=== PATIENT | male | born 1975 | race African-American/Black ===

== ENCOUNTER → 2020-04-19 14:39 | Outpatient (CLI) | payer OTHER, SELFPAY ==
[2020-04-19 15:12] LABS: Basophils % 0.7 % (0.1-2.0); Eosinophils # 0.2 K/mm3 (0.0-0.4); Eosinophils % 4.1 % (0.1-12.0); Hematocrit 43.8 % (42.0-52.0); Hemoglobin 15.3 g/dL (14.1-18.0); Lymphocytes # 2.6 K/mm3 (0.7-4.5); Lymphocytes % 50.7 % (10-50); Mean Corpuscular Volume 91.4 fl (80-94); Monocytes # 0.2 K/mm3 (0.1-1.0); Neutrophils # 2.1 K/mm3 (1.8-7.8); Neutrophils % 40.6 % (37.0-80.0); Platelet Count 194 K/mm3 (142-424); Red Blood Count 4.79 M/mm3 (4.60-6.20); Red Cell Distribution Width 13.5 % (11.5-17.5); White Blood Count 5.2 K/mm3 (4.8-10.8)
[2020-04-19 15:19] LABS: MANUAL DIFFERENTIAL MANUAL DIFFERENTIAL (MANUAL DIFF)
[2020-04-19 15:41] LABS: Alanine Aminotransferase 28 U/L (12-78); Albumin Level 4.2 g/dl (3.5-5.0); Alkaline Phosphatase 72 U/L (38-126); Aspartate Amino Transferase 27 U/L (17-59); Bilirubin,Indirect 0.4 mg/dL (0.0-0.9); Bilirubin,Total 0.4 mg/dl (0.2-1.3); Bilirubin,Unconjugated 0.3 mg/dL (0.0-1.1); Total Protein,Serum 7.3 g/dl (6.3-8.2)
[2020-04-19 15:58] LABS: Eosinophils % 3 % (0-3); Lymphocytes % 52 % (10-50); Monocytes % 2 % (2-9); Neutrophils % 43 % (42-76); Platelet Estimate Normal; RBC Morphology Normal; Total Cells Counted 100
[2020-04-19 16:10] LABS: Prostate Specific Ag Screen 0.2 ng/ml (0.0-4.0)
[2020-04-25 10:13] LABS: Testosterone, Total, LC/MS 102.6 ng/dL (264.0-916.0); Testosterone,Free 3.9 pg/mL (6.8-21.5)
== END ==
PROVIDERS: Visit Provider Urology
DX: E29.1 Testicular hypofunction (principal); Z12.5 Encounter for screening for malignant neoplasm of prostate
CPT/HCPCS: 36415; 80076; 84402; 84403; 85007; 85025; G0103

== ENCOUNTER → 2020-11-19 15:33 | Outpatient (CLI) | payer OTHER, SELFPAY ==
[2020-11-19 16:10] LABS: Basophils # 0.1 K/mm3 (0-0.2); Basophils % 1.2 % (0.1-2.0); Eosinophils # 0.3 K/mm3 (0.0-0.4); Eosinophils % 4.3 % (0.1-12.0); Hematocrit 52.8 % (42.0-52.0); Hemoglobin 16.9 g/dL (14.1-18.0); Lymphocytes # 2.3 K/mm3 (0.7-4.5); Lymphocytes % 39.6 % (10-50); Mean Corpuscular Hemoglobin 30.6 pg (27.0-31.2); Mean Corpuscular Volume 95.7 fl (80-94); Mean Platelet Volume 7.7 fl (7.4-10.4); Monocytes # 0.2 K/mm3 (0.1-1.0); Monocytes % 3.6 % (1.7-9.3); Neutrophils # 2.9 K/mm3 (1.8-7.8); Neutrophils % 51.2 % (37.0-80.0); Platelet Count 215 K/mm3 (142-424); Red Blood Count 5.51 M/mm3 (4.60-6.20); Red Cell Distribution Width 13.7 % (11.5-17.5); White Blood Count 5.7 K/mm3 (4.8-10.8)
[2020-11-19 16:50] LABS: Alanine Aminotransferase 35 U/L (12-78); Albumin Level 4.1 g/dl (3.5-5.0); Alkaline Phosphatase 72 U/L (38-126); Aspartate Amino Transferase 29 U/L (17-59); Bilirubin,Direct 0.3 mg/dl (0.0-0.4); Bilirubin,Indirect 0.3 mg/dL (0.0-0.9); Bilirubin,Total 0.6 mg/dl (0.2-1.3); Bilirubin,Unconjugated 0.3 mg/dL (0.0-1.1); Total Protein,Serum 7.4 g/dl (6.3-8.2)
[2020-11-21 11:05] LABS: Estradiol 23.8 pg/mL (7.6-42.6)
[2020-11-24 18:13] LABS: Testosterone, Total, LC/MS 95.6 ng/dL (264.0-916.0); Testosterone,Free 2.6 pg/mL (6.8-21.5)
== END ==
PROVIDERS: Visit Provider Urology
DX: E29.1 Testicular hypofunction (principal)
CPT/HCPCS: 36415; 80076; 82670; 84402; 84403; 85025

== ENCOUNTER → 2020-11-22 14:56 | Outpatient (CLI) | payer OTHER, SELFPAY ==
[2020-11-22 17:02] VITALS: BMI 40.1
== END ==
PROVIDERS: PCP Internal Medicine; Visit Provider Urology
DX: Z71.3 Dietary counseling and surveillance (principal); E11.9 Type 2 diabetes mellitus without complications
CPT/HCPCS: 97802

== ENCOUNTER 2021-07-23 05:40 | Emergency (ER) | payer BC, SELFPAY ==
[2021-07-23] VITALS (8 sets, daily range): BP systolic 140–169; BP diastolic 79–106; PULSE 78–94; RESP 16–24; TEMP 36.6–37.9; O2SAT 92–98; BMI 35.4
--- NOTE | 2021-07-23 05:52 | XR_ITS ---
PROCEDURE INFORMATION: Exam: XR Chest Exam date and time: 07/23/2021 5:52 AM Age: 46 years old Clinical indication: Cough and shortness of breath; Patient HX: SOA, cough, covid, smoker; Additional info: Possible covid TECHNIQUE: Imaging protocol: XR of the chest. Views: 2 views. COMPARISON: CR CXR2V XR chest 2V 10/28/2018 11:44 AM FINDINGS: Lungs: Some atelectasis or early infiltrate is seen in the right lung base. Pleural spaces: Unremarkable. No pleural effusion. No pneumothorax. Heart/Mediastinum: Unremarkable. No cardiomegaly. Bones/joints: Unremarkable. IMPRESSION: Right lung base airspace disease.
[2021-07-23 06:02] LABS: Influenza A, PCR Not Detected (NotDetected); Influenza B, PCR Not Detected (NotDetected)
[2021-07-23 06:07] LABS: Basophils % 0.8 % (0.1-2.0); Eosinophils # 0.1 K/mm3 (0.0-0.4); Eosinophils % 1.6 % (0.1-12.0); Hematocrit 52.9 % (42.0-52.0); Hemoglobin 17.6 g/dL (14.1-18.0); Lymphocytes # 0.6 K/mm3 (0.7-4.5); Lymphocytes % 13.3 % (10-50); Mean Corpuscular HGB Conc 33.3 g/dL (31.8-35.4); Mean Corpuscular Hemoglobin 31.6 pg (27.0-31.2); Mean Corpuscular Volume 94.9 fl (80-94); Mean Platelet Volume 7.4 fl (7.4-10.4); Monocytes # 0.2 K/mm3 (0.1-1.0); Monocytes % 4.1 % (1.7-9.3); Neutrophils # 3.4 K/mm3 (1.8-7.8); Neutrophils % 80.2 % (37.0-80.0); Platelet Count 151 K/mm3 (142-424); Red Blood Count 5.57 M/mm3 (4.60-6.20); Red Cell Distribution Width 12.9 % (11.5-17.5); White Blood Count 4.3 K/mm3 (4.8-10.8)
[2021-07-23 06:12] LABS: Alanine Aminotransferase 49 U/L (12-78); Albumin Level 3.9 g/dl (3.5-5.0); Albumin/Globulin Ratio 1.1 (1.1-1.8); Alkaline Phosphatase 61 U/L (38-126); Anion Gap 14.2 mEq/L (5-15); Aspartate Amino Transferase 37 U/L (17-59); Bilirubin,Total 0.4 mg/dl (0.2-1.3); Blood Urea Nitrogen 15 mg/dl (9-20); Carbon Dioxide 28 mmol/L (22.0-30.0); Chloride 100 mmol/L (98-107); Creatinine Clearance Estimated 97 mL/min (50-200); Estimated Glomerular Filt Rate 51 ml/min (>60); GFR (African American) 62 ML/MIN (>60); Globulin 3.6 g/dL (1.3-3.2); Glucose 173 mg/dl (74-100); Potassium 4.2 mmoL/L (3.5-5.1); Sodium 138 mmol/L (136-145); Total Protein,Serum 7.5 g/dl (6.3-8.2)
[2021-07-23 06:17] LABS: C-Reactive Protein 46.7 mg/L (0-4)
[2021-07-23 06:30] LABS: Procalcitonin 0.166 ng/mL (0.0-2.0)
[2021-07-23 06:43] LABS: Erythrocyte Sedimentation Rate 2 mm/hr (0-15)
--- NOTE | 2021-07-23 06:46 | [facility].EDSOB ---
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 Diabetes mellitus complication status: with other specified complication Qualified Code(s): E11.69 - Type 2 diabetes mellitus with other specified complication Disposition: Home, Self-Care Condition on Discharge: Good Instructions: DI for COVID-19 (Suspected or Confirmed ) Additional Instructions: fluids and call pcp for follow up Referrals: Keyur Moffett MD [Primary Care Provider] - - Critical Care Critical Care Time: No Attestation: On 07/23/21, the high probability of a clinically significant, sudden or life threatening deterioration of the following system(s) required my full and direct attention, intervention and personal management. The time I documented below is in addition to time spent performing reported procedures but includes the following listed in this critical care notation. Medical Decision Making - Medical Records Medical records reviewed: Yes: I reviewed the patient's medical records. - Ady Inquiry Pt receiving controlled substance: No Vital Signs: 07/23/21 05:42 Temperature 100.2 F H Temperature Source Oral Pulse Rate [Right] 94 H Respiratory Rate 24 Blood Pressure [Right Arm] 149/80 H Blood Pressure Mean [Right Arm] 103 Blood Pressure Source [Right Arm] Automatic Cuff 02 Sat by Pulse Oximetry 96 Oxygen Delivery Method Room Air - Lab Data Lab results reviewed: Yes: I reviewed the patient's lab results. Lab Results 07/23/21 05:55: WBC 4.3 L, RBC 5.57, Hgb 17.6, Hct 52.9 H, MCV 94.9 H, MCH 31.6 H, MCHC 33.3, RDW 12.9, Plt Count 151, MPV 7.4, Neut % (Auto) 80.2 H, Lymph % (Auto) 13.3, [place] % (Auto) 4.1, Eos % (Auto) 1.6, Baso % (Auto) 0.8, Neut # (Auto) 3.4, Lymph # (Auto) 0.6 L, [place] # (Auto) 0.2, Eos # (Auto) 0.1, Baso # (Auto) 0.0, ESR 2 07/23/21 05:55: Sodium 138, Potassium 4.2, Chloride 100, Carbon Dioxide 28, Anion Gap 14.2, BUN 15, Creatinine 1.50 H, Estimated Creat Clear 97, Estimated GFR 51 L, Est GFR ( Amer) 62, Glucose 173 H, Calcium 8.0 L, Total Bilirubin 0.4, AST 37, ALT 49, Alkaline Phosphatase 61, C-Reactive Protein 46.7 H, Total Protein 7.5, Albumin 3.9, Globulin 3.6 H, Albumin/Globulin Ratio 1.1, Procalcitonin 0.166 07/23/21 05:55: SARS-CoV-2 (PCR) Detected A, Influenza A Untype (PCR) Not detected, Influenza Type B (PCR) Not detected Result diagrams: 07/23/21 05:55 07/23/21 05:55 Orders (Tests/Meds): ED MEDICATIONS Discontinued Medications Generic Name Dose Route Start Last Admin Trade Name Freq PRN Reason Stop Dose Admin Dexamethasone Sodium Phosphate 10 mg 07/23/21 05:56 07/23/21 06:00 Dexamethasone 4mg/Ml 5ml Mdv IV 07/23/21 05:57 10 mg ONCE ONE Administration Sodium Chloride 1,000 mls @ 999 mls/hr 07/23/21 06:00 07/23/21 06:01 Sod Chlor 0.9% 1000ml Bag IV 07/23/21 07:00 999 mls/hr .Q1H1M BRIDGET Administration Iopamidol 50 ml 07/23/21 07:23 07/23/21 07:25 Iopamidol-370 (76%); 50ml Vial IV 07/23/21 07:24 50 ml ONCE ONE Administration Iopamidol 25 ml 07/23/21 07:24 07/23/21 07:26 Iopamidol-370 (76%); 50ml Vial IV 07/23/21 07:25 25 ml ONCE ONE Administration Ketorolac Tromethamine 30 mg 07/23/21 05:56 07/23/21 06:01 Ketorolac 30mg/Ml Vial IV 07/23/21 05:57 30 mg ONCE ONE Administration Ondansetron HCl 4 mg 07/23/21 05:56 07/23/21 06:00 Ondansetron 4mg/2ml Vial IV 07/23/21 05:57 4 mg ONCE ONE Administration Sodium Chloride 10 ml 07/23/21 07:23 07/23/21 07:25 0.9% Sodium Chloride 20ml Vial IV 07/23/21 07:24 10 ml ONCE ONE Administration Sodium Chloride 10 ml 07/23/21 07:24 07/23/21 07:25 0.9% Sodium Chloride 20ml Vial IV 07/23/21 07:25 10 ml ONCE ONE Administration - Radiology Data #1 Image(s): Chest Image
[2021-07-23 06:54] LABS: Coronavirus 19, PCR Detected (NotDetected)
--- NOTE | 2021-07-23 07:03 | CT_ITS ---
PROCEDURE: CT ANGIO CHEST PE PROTOCOL CLINCIAL INDICATION: SOA Covid19 positive COMPARISON: No exams were available for comparison TECHNIQUE: IV Contrast: 70ML Isovue 370 Axial images obtained with sagittal and coronal reformats. All CT scans at the facility use one or more dose reduction, viz: automated exposure control, ma/kV adjustment per patient size (including targeted exams where dose is matched to indication, i.e. head), or iterative reconstruction technique. FINDINGS: HEART AND MEDIASTINAL STRUCTURES: No evidence of pulmonary embolus, aortic aneurysm, or aortic dissection. There are few small mediastinal lymph nodes which may be reactive in nature. LUNGS AND PLEURAL SPACES: Scattered bilateral multifocal ground-glass opacities are present. Atelectatic changes are noted in the lung bases. Ground-glass opacities may simulate or obscure other disease process such as underlying pulmonary nodules. Therefore, convalescent follow-up is suggested. There are low lung volumes. No effusion. BONY STRUCTURES: No acute bony abnormalities apparent. UPPER ABDOMEN: Fatty liver ADDITIONAL FINDINGS: Small axillary lymph nodes are present bilaterally. IMPRESSION: 1. No evidence of pulmonary embolus. 2. Multifocal bilateral ground-glass opacities consistent with Covid19 pneumonia with associated atelectasis and low lung volumes Dictated by: Zain Bee MD 07/23/2021 07:39 Zain Bee MD in [place] 07/23/2021 07:39
--- NOTE | 2021-07-23 08:11 | PC.NURSE ---
pt given a meal tray
== END 2021-07-23 10:43 | disposition home or self-care (01) ==
PROVIDERS: Emergency Provider Emergency Medicine; PCP Family Medicine
DX: U07.1 COVID-19 (principal); E11.65 Type 2 diabetes mellitus with hyperglycemia; I10 Essential (primary) hypertension; E78.5 Hyperlipidemia, unspecified; Z87.891 Personal history of nicotine dependence; Z79.899 Other long term (current) drug therapy
CPT/HCPCS: 71046; 71275; 80053; 84145; 85025; 85651; 86140; 96365; 99283; C9803; J2405; Q9967; U0003; U0005